=== PATIENT | male | born 1955 ===

== ENCOUNTER 2018-02-02 05:44 | Day surgery (SDC) | payer BC, OTHER ==
[~2018-02-02 05:44] MED LIST: Buffered Lidocaine 0.9% SYRIN* 5 ML/SYR SYRINGE INTRADERM ONE
[2018-02-02] MEDS ORDERED: Atracurium* 10 MG/ML 10 ML VIAL ONE (06:26)
[2018-02-02] MEDS ORDERED: Succinylcholine* 20 MG/ML 10 ML VIAL ONE (06:27)
[2018-02-02] MEDS ORDERED: fentaNYL* 50 MCG/ML 2 ML VIAL (100 MCG VIAL) ONE (06:54)
[2018-02-02] MEDS ORDERED: Propofol* 10 MG/ML 20 ML BTL IV PUSH ONE (06:55)
[2018-02-02] MEDS ORDERED: Midazolam* 1 MG/ML 2 ML VIAL (2 MG) ONE (06:55)
[2018-02-02] MEDS ORDERED: Lidocaine 2% PF * 5 ML VIAL ONE (06:55)
[2018-02-02] MEDS ORDERED: Famotidine IV* 10 MG/ML 2 ML (20 mg) ONE (06:55)
[2018-02-02] MEDS ORDERED: Dexamethasone IV* 4 MG/ML 1 ML (4 MG) ONE (06:55)
[2018-02-02] MEDS ORDERED: PROCHLORPERAZINE INJ 5 MG/ML 2 ML VIAL IV PRN (09:16)
[2018-02-02] MEDS ORDERED: Acetaminophen TAB* 325 MG PO PRN (09:16)
[2018-02-02] MEDS ORDERED: Naloxone* 0.4 MG/ML 1 ML VIAL IV PRN (09:16)
[2018-02-02] MEDS ORDERED: Ondansetron INJ* 2 MG/ML VIAL IV PRN (09:16)
[2018-02-02] MEDS ORDERED: Levalbuterol 0.63MG/3ML NEB* UNIT OF USE INH PRN (09:16)
[2018-02-02 09:36] VITALS: BP 133/64
--- NOTE | 2018-02-02 09:58 | RAD ---
HISTORY: LARYNX CANCER COMPARISONS: November 27, 2017 PET/CT, November 03, 2017 CT TECHNIQUE: The following sequences were obtained of the neck: Sagittal T1-weighted images, axial and coronal T1 and T2-weighted in phase and water phase images. Additionally axial and coronal T1-weighted in phase images and sagittal T1-weighted images with fat saturation were obtained after contrast enhancement with a gadolinium-based intravenous contrast agent.. FINDINGS: BRAIN AND ORBITS: The visualized brain and orbits are normal. PARANASAL SINUSES: There is mucosal thickening of ethmoid air cells and right maxillary sinus. There is an air-fluid level within the right maxillary sinus. There is a right mastoid effusion. SALIVARY GLANDS: The parotid glands, submandibular glands, sublingual glands are normal. NASAL CAVITY/NASOPHARYNX: The nasal cavity and nasopharynx are normal. ORAL CAVITY/OROPHARYNX: The oral cavity and oropharynx are normal. LARYNGEAL APPARATUS/HYPOPHARYNX: The patient is status post tracheostomy. There is mucosal thickening and enhancement of the supraglottic larynx without appreciable nodularity. UPPER AIRWAY/UPPER ESOPHAGUS: There is mild mucosal thickening and enhancement of the upper esophagus. LUNG APICES: There is a 1.7 cm short axis right paratracheal lymph node . There is a 1.1 cm short axis prevascular lymph node. There is consolidation bronchiectasis of the left upper lobe. THYROID GLAND: The thyroid gland is normal. LYMPH NODES: As noted above, there is enlarged right paratracheal lymph node and an enlarged prevascular lymph node. There are subcentimeter short axis anterior cervical chain lymph node. VASCULATURE: Normal flow-voids are noted within the visualized craniocervical vasculature. BONES AND SOFT TISSUES: No bone or soft tissue abnormalities are noted. OTHER: None. IMPRESSION: 1. RIGHT STATUS POST TRACHEOSTOMY. 2. THERE IS MUCOSAL THICKENING AND ENHANCEMENT OF THE SUPRAGLOTTIC LARYNX WITHOUT NODULARITY. 3. THERE IS MUCOSAL THICKENING AND ENHANCEMENT OF THE UPPER ESOPHAGUS. 4. THERE IS CONSOLIDATION AND BRONCHIECTASIS OF THE LEFT UPPER LOBE. 5. THE ABOVE FINDINGS MAY BE DUE TO TREATMENT EFFECT IF THERE IS A HISTORY OF RADIATION THERAPY.. 6. THERE ARE ENLARGED RIGHT PARATRACHEAL AND PREVASCULAR LYMPH NODES IN THE UPPER CHEST CONCERNING FOR METASTATIC DISEASE GIVEN THE HISTORY OF MALIGNANCY. 7. THERE IS NO CERVICAL LYMPHADENOPATHY BY SIZE CRITERIA. THE ENLARGED RIGHT LEVEL 2 LYMPH NODE VISIBLE ON PREVIOUS CT EXAMINATION HAS DECREASED IN SIZE 8. THERE IS A RIGHT MASTOID EFFUSION WITH AN AIR-FLUID LEVEL IN THE RIGHT MAXILLARY SINUS.
== END 2018-02-02 09:52 | disposition home or self-care (01) ==
LOC: OR 05:44
PROVIDERS: ATTEND Internal Medicine Hematology & Oncology
DX: C32.1 Malignant neoplasm of supraglottis (principal); Z87.891 Personal history of nicotine dependence; E78.5 Hyperlipidemia, unspecified; E83.30 Disorder of phosphorus metabolism, unspecified; B37.0 Candidal stomatitis; E11.9 Type 2 diabetes mellitus without complications
CPT/HCPCS: 70543; A9579; J0330; J1100; J2250; J2704; J3010